=== PATIENT | female | born 1960 | race Caucasian/White ===

== ENCOUNTER 2019-12-17 15:37 | Inpatient (IN) | payer OTHER ==
[~2019-12-17] VITALS: Ht 167.6 cm; Wt 55.8 kg
[~2019-12-17 15:37] MED LIST: ALPRAZOLAM; ALPRAZOLAM2 MG PO; CARISOPRODOL 3350 M1 GT; DARVOCET-N 1001 EAC1 PO; DESYREL300 MG PO; KEPPRA 500 MG500 M1 PO; METHOCARBAMOL500 M2 PO; NEURONTIN 300M300 M2 PO; PEPCID20 MG PO; SOMA350 MG PO; VITAMIN B-1100 M1 PO
[2019-12-17] MEDS ORDERED: VIBERZI100 MG PO (17:28)
[2019-12-17 17:30] VITALS: BP 127/110
[2019-12-17] MEDS ORDERED: METHOCARBAMOL500 M2 PO (17:32)
--- NOTE | 2019-12-17 17:55 | NUR ---
1710 PATIENT ARRIVED VIA CART BY EMS FOR ADMIT TO [facility] ROOM 520A. PATIENT BEFORE GETTING TO ROOM IS ASKING FOR CIGARETTES AND A DIRECTOR SUPPLIER QUALITY. 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 PATIENT TO ROOM AMB FROM CART TO BED WITH STEADY GAIT. VS BP- 127/110 P- 66 RESP- 16 TEMP- 97.9 O2 SATS 99%. MAXIME 5' 6.5'' WT-123.0 PATIENT TALKS A LOT WITH DIFFICULTY ASKING QUESTIONS. PATIENT STATES "I AGREED TO SIGN MYSELF IN SO I CAN SPEAK WITH A PSYCHIATRIST". PATIENT UP TO DAYROOM AMB WITH A STEADY GAIT. PATIENT GET COFFEE AT THAT TIME. WHEN ASKED ABOUT PEOPLE CALLING HER NAMES OR PHYSICALLY AGGRESSIVE WITH HER PATIENT STATES "MY RELATIONSHIP WITH EX- IS NOT GOOD AND GOES INTO EXPLAINING WHY HE IS THIS WAY WITH HER". PATIENT STATES ITS MORE VERBAL THAN PHYSICAL. PATIENT STATES PAST MEDICATL HX OF HYPOTENTION, SIEZURES AND HEADACHES. PT C/O NEUROPATHY IN HANDS AND FEET. PATIENT TALKS ABOUT HER MEDICATION AND HOW SHE WOULD LIKE TO CONTINUE THE MEDS SHE IS CURRENTLY TAKING. PATIENT C/O BEING HUNGRY, REG DIET TRAY ORDERED AND PATIENT TO DAYROOM TO EAT. PATIENT TALKING WITH OTHER PATIENTS WELL. NILDA AND DR JAEGER NOTIFIED OF BP, BP RETAKEN BP- 132/82 AT 1845. WILL REPORT OFF TO ON COMING NURSE. BP WAS RETAKEN WITH BP-
--- NOTE | 2019-12-17 19:08 | NUR ---
MEDICATION GIVEN WHOLE WITHOUT DIFFICULTY. 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 PATIENT SITTING WITH OTHER PATIENT WHILE EATING AND TALKING TO PT. WILL REPORT OFF TO RN.
[2019-12-17 19:49] VITALS: BP 118/60
--- NOTE | 2019-12-18 06:13 | NUR ---
12-17-19 CARE TRANSFERED AT 1915 OBSERVED PT SITTING IN DAY ROOM SOCIALIZING WITH OTHERS. 2009 PT AAOX4, VSS, RR EVEN AND NONLABORED ON RA. PT DENIES ANY PAIN AND SI/SH/HI/VAH. DURING MEDICATION ADMIN PT HAD NO DIFFICULTIES. PT HAS REMAINED CALM AND COOPERATIVE. NO S/S OF ACUTE DISTRESS NOTED, PT WILL CONTINUE TO BE MONITOR PER [facility] PROTOCOL.
[2019-12-18 09:06] VITALS: BP 85/47
--- NOTE | 2019-12-18 10:14 | NUR ---
0700 ASSUMED CARE OF PATIENT, PATIENT IN ROOM AT THAT TIME. 0730 PATIENT IN DAYROOM SITTING WITH OTHER PATIENTS. PATIENT SITTING REAL CLOSE WITH MALE PT AND STRIP DEBURRER ASKS PATIENT TO PLEASE MOVE TO OTHER SIDE OF TABLE. PATIENT STATES "I HAD A HARD TIME HEARING HIM AND HE IS A NICE MAN". PATIENT ALSO STATES "I THINK HE IS JEALOUS WHEN ANOTHER PATIENT COME NEAR ME". PATIENT STATES SHE DID NOT LIKE BREAKFAST AND DID NOT EAT, WILL PROVIDE WITH MENU FOR PATIENT TO CHOOSE MEAL. MEDICATIONS TAKEN WHOLE WITHOUT DIFFICULTY. PATIENT WAS PRESENT IN GROUP AND VOICED OUT OPINON REGARDING HOW CHILDISH GROUP WAS AND WAS ASKED TO LEAVE. PATIENT TO ROOM WAITING TO SPEAK WITH DR JAEGER.
[2019-12-18 19:14] VITALS: BP 109/54
--- NOTE | 2019-12-19 05:49 | NUR ---
12-18-19 CARE TRANSFERED AT 1915 OBSERVED PT SITTING IN DAY ROOM SOCIALIZING WITH OTHERS. 2010 PT AAOX4, VSS, RR EVEN AN DNONLABORED ON RA. PT REPORTS GENELIZED PAIN IN JOINTS AND SCALES 5 ON 0-10 SCALE, PT DENIES SI/SH/HI. DURING MEDICATION ADMIN PT HAD NO DIFFICULTIES. WHILE REASSESS PAIN PT SCORED PAIN AT AT 2 ON 0-10 SCALE. PT REMAINED CALM AND COOPERATIVE. ZERO S/S OF ACUTE DISTRESS NOTED, PT WILL CONTINUE TO BE MONITOR PER [facility] PROTOCOL.
[2019-12-19 09:13] VITALS: BP 99/65
--- NOTE | 2019-12-19 10:55 | NUR ---
0700 ASSUMED CARE OF PATIENT, PATIENT IN BED AT THAT TIME. PATIENT OUT TO DAYROOM FOR BREAKFAST, SITS WITH OTHERS COMMUNICATING WELL. PATIENT IS CALM AND COOPERATIVE. PATIENT REQUESTS TO SEE SW TODAY. SW NOTIFIED OF PATIENTS REQUEST. MEDICATION TAKEN WHOLE WITHOUT DIFFICULTY.
--- NOTE | 2019-12-20 05:12 | NUR ---
12-19-19 CARE TRANSFERED 5 OBSERVED PT IN DAY ROOM. 2010 PT AAOX4, VSS RR EVEN AND NONLABORED ON RA, PT DENIES PAIN AND SI/HI. DURING MEDICATION ADMIN ZERO DIFFICULTIES. LATER PT REPORT FEELING NASAUATED AND GENERALIZED PAIN AND SCALED AT 7 ON 0-10 SCALE, REASSESSMENT PT SCALED AT A 2 ON 0-10 SCALE. ZERO S/S OF ACUTE DISTRES NOTED, PT WILL CONTINUE TO BE MONITOR PER [facility] PROTOCOL.
[2019-12-20 09:16] VITALS: BP 106/75
--- NOTE | 2019-12-20 13:38 | NUR ---
SW and Pt called Pt's ex- to discuss Pt's treamtment and discharge. Pt gave verbal permission to speak with her ex George. SIERRA explained to George the improtance of not providing ETOH to the Pt. George was in agreement not to buy or have ETOH in the home. George had questions concerning the Pt's Dx and treatment. Dr. Skelton was able to step into the meeting to explain this information to George. George was informed of the discharge recommendations of otpt psychiatric treatment, therapy, and case management services. George agreed that the Pt would benefit from these services. George was concerned about if Pt starts to expiernce symptoms again. SIERRA informed George he could take the Pt to any emergency room to recieve and evaluation. George stated he understood the information. George stated he would not be able to pick the pt up and would prefer the Pt's son Josh to transport the Pt home. George had no further questions or concerns. SIERRA will contact Josh concerning transportation.
[2019-12-20 20:01] VITALS: BP 135/81
--- NOTE | 2019-12-21 04:15 | NUR ---
Pt. rested quietly most of the night in the bed when checked on during frequent rounds. Cooperative with cares.
[2019-12-21 08:20] VITALS: BP 126/76
--- NOTE | 2019-12-21 08:32 | NUR ---
on 12/20/2019 @ 1Pm Alcides contacted [facility]. ALCIDES left a message for intake in an effort to schedule and intake for otpt services for the Pt. on 12/21/2019 @ 8:20am ALCIDES again called [facility] and was informed it will take 1 to 3 days to recieve a call back from intake to schedule and appointment.
--- NOTE | 2019-12-21 09:40 | NUR ---
PT THIS AM IN DINING ROOM. PT TOOK MEDS WITHOUT ANY ISSUES. PT GOING HOME TODAY. PT DENIES ANY PAIN. TALKING WITH SOLAR SITE ASSESSMENT SPECIALIST IN OFFICE ABOUT DISCHARGE.
[2019-12-21] MEDS ORDERED: HALOPERIDOL 1 MG1 MG PO (12:43)
[2019-12-21] MEDS ORDERED: B-12500 MCG PO (12:44)
--- NOTE | 2019-12-21 13:09 | NUR ---
PT LEAVING AT THIS TIME. TERRY IS TAKING PT DOWN TO RIDE.
--- NOTE | 2019-12-21 13:09 | NUR ---
SW provided Pt with instuctions for follow up care with [facility]. Also reminder of upcoming appointment with PCP Dr. Bledsoe for 12/28/2019 @11:15am. Information included mental health crisis line number.
--- NOTE | 2019-12-21 13:20 | NUR ---
PT HAS ALL HER BELONGINGS AND MEDS FROM PHARMACY, 3 BAGS.
[2019-12-21 13:29] VITALS: BP 126/76
--- NOTE | 2019-12-22 16:37 | H ---
[facility] [place] [address] HISTORY AND PHYSICAL Name: GEORGETTE SAINZ Room #: 520A-A [facility] IN ..#: [id number] Admission: 12/17/19 Attend Phys: Jon Hays DO Discharge: 12/21/19 Date of : 58 Report #: [id number] THIS REPORT FOR: cc: DANAY - No family physician/PCP FAM - No family physician/PCP Jon Hays DO ~ CC: Jon Hays [facility] physician/PCP DATE OF SERVICE: 12/17/2019 INPATIENT PSYCHIATRIC EVALUATION ATTENDING PSYCHIATRIST: Jon Hays DO. DOOR BUILDER: Chela Ortiz MD REASON FOR ADMISSION: Psychosis, history of recent alcohol withdrawal suspected. SOURCES OF INFORMATION: Collateral and records from [facility] where the patient was transferred from and was admitted 12/10/2019 through 12/17/2019, records here at [facility], interview with the patient. HISTORY OF PRESENT ILLNESS: This is a 59-year-old female who presented on 12/09 with complaints of confusion, wandering around. She was admitted for concern of delirium and alcohol withdrawal. She was noted to have seizure-like activity for first day in [facility]. She was started on Keppra. She received MRI and EEG, which were largely unremarkable. She had Tele Psychiatry consultation whose findings I will attempt to review. She had ongoing paranoid delusions during her medical hospitalization at [facility]. The hospitalist, Dr. Whittington, was concerned about the degree of paranoid psychosis, which may be chronic in nature versus due to withdrawal delirium. Affidavits were filled out at the time of her admission at [facility]: 1. Once that was done on by Josh Sainz. He reported many incidents of hearing voices from her personal computer which was unplugged, one to [place] [employer] which had her taken to [facility]. 2. SHe remarked tried driving to my house 5 minutes from her house and has been there countless times close but got confused. This was at 1:00 a.m. The police called and arrested. She had seizure in [facility], taken to the [facility], unclear the date of that seizure. 3. She drove to a friend's house believing she was living. Friend was long . She ended up [facility] [address] [place] [address] HISTORY AND PHYSICAL Name: GEORGETTE SAINZ Room #: 520A-A [facility] IN .R.#: [id number] Admission: 12/17/19 Attend Phys: Jon Hays DO Discharge: 12/21/19 Date of : 58 Report #: [id number] at a cafe, talking to herself. Staff called police and she ended up at [facility]. This affidavit reports she has been living in an alternate reality for decades. Another affidavit filled out by Josh Sainz. This was dated 12/09. At approximately 2:00 a.m., she rang the neighbor's doorbell, spoke to them through ring. She said "I want your baby", police called and they got her back home. At approximately 10:00 a.m., she was trying to enter the same neighbor's vehicles. Police called, the police and ambulance took her to [facility]. She has been hearing voices and having conversations from home electronics often when they are turned off. So, I definitely have to call Josh Sainz for further collateral. Dr. Whittington wrote affidavit that basically said she was showing signs and symptoms of paranoid psychosis. She is deemed unsafe to return home. PAST MEDICAL HISTORY: Basically has a history of UTI in in first trimester, history of seizures, encephalopathy, history of alcohol abuse. ALLERGIES: ALLERGIC TO CODEINE. FAMILY HISTORY: Reviewed. No pertinent family history. Says she is a current smoker. She was on the opiate analog, methocarbamol 500 mg p.o. q. 6 hours, carisoprodol 350 mg p.o. daily that is Soma, propoxyphene/acetaminophen that is Darvocet. Apparently, she uses alcohol weekly. CT head was done on 12/09, which showed no CT evidence of acute intracranial abnormality. Chest x-ray which was done, which showed no acute processes detected. Interestingly, on 12/13, there was a progress note, the patient spoke to, I believe this is Dr. Antunez, neurologist had seen her about voices that she hears, she mentioned that she has telepathic association with her son. She hears the voices and answers them since she was in her 20s. She does not know if they talk to her through the wires in the room, her phone, which she thought would be unusual since she does not have her phone with her or her stereo. She denied seeing things. Examination concerning for underlying psychiatric condition, possibly schizophrenia, also diagnosed her with alcoholism. Dr. Antunez does say that there are no further seizures and medication should be discontinued by the psychiatrist, so for some reason, her Keppra dose was back at 500 mg twice a day, so that is interesting. It looks like there was a rapid response on the 12/09 possibly, it is unclear. Her diagnoses at [place] were psychosis; paranoia; auditory hallucinations; history of alcoholism and smoking; UTI, culture negative; metabolic encephalopathy, resolved; DTs seem resolved. EKG at [facility] done on 12/09 showed sinus tachycardia, read as considered right atrial [facility] [address] [place] [address] HISTORY AND PHYSICAL Name: GEORGETTE SAINZ Room #: 520A-A [facility] IN ..#: [id number] Admission: 12/17/19 Attend Phys: Jon Hays, Discharge: 12/21/19 Date of : 58 Report #: [id number] enlargement. Her rate was 105, QTC 453, QT 342, CT interval 147. Other than the tachycardia, it looks fairly unremarkable to me. Apparently, there was some history Dr. Antunez got, discussed with Dr. Smith. She had seizure episodes before she has had some disorientation previously. Reports hearing voices that are people's thoughts and that this is a very unique. She says she has been to [place] before, that was on 12/14. VITAL SIGNS: Here at [facility] as follows, actually not that well documented yet. She did have 127/110 blood pressure that was repeated and was 130/82, pulse was 66. She is afebrile. LABORATORY DATA: Laboratories done over at [place], most recent hematology, white count 8.9, H and H 12.0 and 35.5, platelet count 277. She had 2+ microcytic cells, 2+ anisocytosis, platelet estimate was adequate. Coags from 12/09: PT 10.7, INR 1.0, APTT 24.0. Chemistries: Sodium 141, potassium 3.6, chloride 105, bicarbonate 24, anion gap 12, BUN 3, creatinine 0.6, estimated GFR 102, glucose 117. Lactic acid 1.7, calcium 8.7, phosphorus 3.8, magnesium 2.2, total bilirubin 0.8. GGT was high at 73 on 12/09. AST 24, ALT 16, alkaline phosphatase 100. Ammonia less than 10. Troponin less than 0.06. CRP less than 2.0. NT-proBNP 121, total protein 6.4, albumin 3.4. Lipase 108. B12 is 512. Folate 12.1. TSH 2.193, free T4 1.07, T3 uptake 26. Serum qualitative is negative, she is 59. Urinalysis from [facility] had some hyaline casts, mucus, bacteria, squamous cells, leukocytes, trace leukocyte esterase, trace blood. Microbiology of urine culture showed no growth. There was a blood culture done on 12/09, which showed no growth at 48 hours, I believe. Toxicology: Acetaminophen less than 2, positive benzodiazepines, otherwise negative. Alcohol less than 10. Salicylate is 3.3. Serology: COVID-19 PCR order was negative from the 12/09. CURRENT MEDICATIONS: Here at [facility], thiamine 100 mg p.o. daily; B12 1000 mcg p.o. daily due to mostly low B12; gabapentin 300 mg p.o. 3 times a day at 0900, 1500, 2100; alprazolam 2 mg p.o. at 0900, 1500, 2100; trazodone 150 mg p.o. at bedtime; Keppra 500 mg p.o. b.i.d.; hydralazine 10 mg p.o. q. 6 p.r.n. for diastolic blood pressure greater than 100; famotidine 20 mg p.o. at 0800 and 1600. Otherwise, has PRNs. I think we will go ahead and lower the Keppra dose to [address] Antunez suggested due to the psychiatric side effects of Keppra, it is best not to have her on it unless there is really a bonafide clinical need. So, we will go back in wean off mode with it. PHYSICAL EXAMINATION: GENERAL: Normal gait and station. Hair is braided. Fair hygiene. MENTAL STATUS EXAMINATION: This is a well-developed female appearing stated age. Attention intact. Concentration limited. Speech is normal rate, volume and tone. Thought process linear and goal directed. Thought content [facility] [address] [place] [address] HISTORY AND PHYSICAL Name: GEORGETTE SAINZ Room #: 520A-A [facility] IN [facility]#: [id number] Admission: 12/17/19 Attend Phys: Jon Hays, Discharge: 12/21/19 Date of : 58 Report #: [id number] focused on the present and engaging with peers. Denied SI or HI. Denied auditory, visual, or tactile hallucinations. Stated she was "mentally well". Memory not formally tested today. Insight limited. Judgment limited. Fund of knowledge at least average. REVIEW OF SYSTEMS: She initially had complained to the nurse about chest pain but denied it with the primary care nurse practitioner, Yanelis that saw her. Brief 10-point review of systems from [facility]. GENERAL: Denied fever or chills. EYES: No visual changes or blurred vision. HENT: No trauma or headache. No hearing loss or tinnitus. No congestion or rhinitis. No dysphagia or dysarthria. CARDIOVASCULAR: Again, denied chest pain, though reported early or palpitations. RESPIRATORY: No shortness of breath or cough. GASTROINTESTINAL: No nausea or vomiting. GENITOURINARY: No urgency or frequency of urination. MUSCULOSKELETAL: Denies joint pain. PSYCHIATRIC HISTORY: Complains of anxiety. ENDOCRINE: Denies diabetes, thyroid disease. HEMATOLOGIC/LYMPHATIC: No bruising, bleeding or anemia. INTEGUMENTARY: No rashes, no lesions. NEUROLOGIC: Denied. IMMUNOLOGIC: No lumps or swelling. It looks like that was from 12/13. ASSESSMENT: Unspecified psychosis, rule out chronic schizophrenia versus delirium secondary to alcohol withdrawal; history of alcoholism; history of tobaccoism, urinary tract infection, historically. PLAN: Evaluate, stabilize, obtain collateral. I reviewed her medications ordered as above. EXPECTED LENGTH OF STAY 5-10 days. We will screen for dementia in further detail. I did reduce her Keppra to 250 b.i.d., again due to psychiatric side effects. STRENGTHS: She is insured, appears to have some family support. WEAKNESSES: Likely chronic mental illness, likely some compliance problems. [facility] [address] [place] [address] HISTORY AND PHYSICAL Name: GEORGETTE SAINZ Room #: 520A-A [facility] IN [facility]#: [id number] Admission: 12/17/19 Attend Phys: Jon Hays DO Discharge: 12/21/19 Date of : 58 Report #: [id number] About 45 minutes spent on this evaluation. <ELECTRONICALLY SIGNED> By: Jon Hays DO 12/22/19 [id number] Jon Hays DO /nt
== END 2019-12-21 13:00 | disposition home or self-care (01) | DRG 885 ==
LOC: SBH
PROVIDERS: ADMIT Psychiatry & Neurology Psychiatry; ATTEND Psychiatry & Neurology Psychiatry
DX: F20.9 Schizophrenia, unspecified (principal); F10.231 Alcohol dependence with withdrawal delirium; G93.41 Metabolic encephalopathy; N39.0 Urinary tract infection, site not specified; F29 Unspecified psychosis not due to a substance or known physiological condition; Y90.9 Presence of alcohol in blood, level not specified; G40.909 Epilepsy, unspecified, not intractable, without status epilepticus; F41.9 Anxiety disorder, unspecified; F22 Delusional disorders; G62.9 Polyneuropathy, unspecified; F32.9 Major depressive disorder, single episode, unspecified; Z90.49 Acquired absence of other specified parts of digestive tract; Z98.891 History of uterine scar from previous surgery; Z86.73 Personal history of transient ischemic attack (TIA), and cerebral infarction without residual deficits; Z87.891 Personal history of nicotine dependence; Z88.5 Allergy status to narcotic agent
CPT/HCPCS: 10880